=== PATIENT | female | born 1955 | race Caucasian/White ===

== ENCOUNTER 2016-04-26 08:25 | Day surgery (SDC) | payer BC ==
[2016-04-22 13:21] VITALS: BMI 40.7
[~2016-04-26 08:25] MED LIST: LACTATED RINGERS 1,000 ML IV SCH
[2016-04-26 08:47] VITALS: TEMP 98.6
[2016-04-26] MEDS ORDERED: PROPOFOL 10 MG/ML 20 ML VIAL IV ONE (09:28)
[2016-04-26] MEDS ORDERED: LIDOCAINE 1% INJ 10MG/ML (20 ML MDV) ONE (09:28)
--- NOTE | 2016-04-26 09:58 | P.PCN ---
Date of Procedure: 04/26/16 Procedure(s) Performed: Procedure: Total colonoscopy. Preoperative diagnosis: Screening for neoplasia, patient has history of polyps removed Postoperative diagnosis: Sigmoid diverticulosis with no evidence of acute diverticulitis, strictures, polyps or cancer. Preparation: HalfLytely prep. Sedation: Was provided by anesthesia. Brief clinical history: The patient is a 60-year-old female who is referred for this evaluation for screening for neoplasia because of history of polyps. She had four prior exams, the last was around 4 to 5 years ago. At this time she has no abdominal complaints, bleeding or anemia. Procedure: With the patient on her left lateral decubitus position and after informed consent and adequate sedation, the perianal area was inspected and it did not show any fissures or fistulas. There were no masses felt on digital rectal examination. The Olympus CFQ 160L video colonoscope was then inserted in the rectum in the usual fashion and advanced to the cecum. There were several diverticular orifices seen scattered in the sigmoid but I saw no evidence of acute diverticulitis or strictures. No polyps or tumors were seen. I retroflexed endoscope in the rectum before the endoscope was withdrawn. The patient tolerated the procedure well. Plan: The patient was reassured. Discussed dietary measures. With her history I recommended a repeat exam in 5 years. She will follow-up with you as planned.
[2016-04-26 10:08] VITALS: BP 144/80; PULSE 65; RESP 16
== END 2016-04-26 10:39 | disposition home or self-care (01) ==
LOC: ORWHC2ENDO 08:25
DX: Z12.11 Encounter for screening for malignant neoplasm of colon (principal); K57.30 Diverticulosis of large intestine without perforation or abscess without bleeding; Z86.010 Personal history of colon polyps; I10 Essential (primary) hypertension; E66.9 Obesity, unspecified; Z68.41 Body mass index [BMI] 40.0-44.9, adult; K44.9 Diaphragmatic hernia without obstruction or gangrene; Z79.899 Other long term (current) drug therapy
CPT/HCPCS: J2001; J2704; G0105; 45378; 99153